=== PATIENT | male | born 2000 | race Caucasian/White ===

== ENCOUNTER → 2022-03-16 13:13 | Outpatient (BNVA) | payer OTHER, SELFPAY | PROVIDERS: Visit Provider Internal Medicine | DX: S39.012A Strain of muscle, fascia and tendon of lower back, initial encounter (principal); X50.0XXA Overexertion from strenuous movement or load, initial encounter | CPT/HCPCS: 99203 ==

== ENCOUNTER → 2022-03-20 07:59 | Outpatient (BNVA) | payer OTHER, SELFPAY | PROVIDERS: Visit Provider Internal Medicine | DX: S39.012A Strain of muscle, fascia and tendon of lower back, initial encounter (principal); X50.0XXA Overexertion from strenuous movement or load, initial encounter | CPT/HCPCS: 99213 ==

== ENCOUNTER → 2023-07-11 09:29 | Outpatient (BNVA) | payer OTHER, SELFPAY | PROVIDERS: Visit Provider Physician Assistant Medical | DX: S39.011D Strain of muscle, fascia and tendon of abdomen, subsequent encounter (principal); X50.0XXD Overexertion from strenuous movement or load, subsequent encounter | CPT/HCPCS: 99203 ==

== ENCOUNTER → 2023-07-16 10:49 | Outpatient (BNVA) | payer OTHER, SELFPAY | PROVIDERS: Visit Provider Physician Assistant Medical | DX: S39.011D Strain of muscle, fascia and tendon of abdomen, subsequent encounter (principal); X50.0XXD Overexertion from strenuous movement or load, subsequent encounter | CPT/HCPCS: 99213 ==

== ENCOUNTER → 2023-07-23 10:47 | Outpatient (BNVA) | payer OTHER, SELFPAY | PROVIDERS: Visit Provider Physician Assistant Medical | DX: R10.32 Left lower quadrant pain (principal); S39.011D Strain of muscle, fascia and tendon of abdomen, subsequent encounter; W50.0XXD Accidental hit or strike by another person, subsequent encounter | CPT/HCPCS: 99213 ==

== ENCOUNTER 2023-07-27 11:45 | Outpatient (REF) | payer OTHER, SELFPAY ==
--- NOTE | ~2023-07-27 | CT_ITS ---
EXAMINATION: CT ABDOMEN AND PELVIS WITHOUT CONTRAST CLINICAL INFORMATION: Lower abdominal pain status-post groin injury. COMPARISON: None available. TECHNIQUE: Multidetector volumetric imaging was performed from the superior aspect of the liver through the pubic symphysis. Sagittal and coronal reformatted images were obtained on the technologist's workstation. This CT examination was performed using dose optimization techniques as appropriate, variously including the following: *Automated exposure control *Adjustment of mA and/or kV according to patient size (this includes techniques or standardized protocols for targeted exams where dose is matched to indication/reason for exam; i.e. extremities or head) *Use of iterative reconstruction technique DLP: 508 mGy-cm FINDINGS: LUNG BASES: The visualized lung bases are unremarkable. LIVER, GALLBLADDER, AND BILIARY TREE: The liver is normal in size, shape, and attenuation. No focal hepatic lesion or biliary ductal dilatation is present. The gallbladder is unremarkable with no evidence of radiopaque gallstones, gallbladder wall thickening, or obvious pericholecystic inflammatory changes. PANCREAS: Unremarkable. SPLEEN: Unremarkable. ADRENAL GLANDS: Unremarkable. KIDNEYS AND URETERS: The kidneys are normal in size, shape, and attenuation. At the interpolar right kidney (6:250 and 263), 2 nonobstructing 1 mm calculi are seen. At the lower pole of the right kidney (6:272), a 3 mm nonobstructing calculus is seen. At the interpolar left kidney (6:221 and 243), 3 mm and 1 mm nonobstructing calculi are seen. No perinephric stranding. BLADDER: Unremarkable. GASTROINTESTINAL TRACT: There is wall thickening of several small bowel loops in the left upper quadrant (i.e., 3:31-9). No obstruction, free intraperitoneal air or abscess is seen. No diverticulosis or diverticulitis is seen. The vermiform appendix appears normal. ABDOMINAL WALL: There is a tiny fat-containing umbilical hernia. LYMPH NODES: There are shotty, nonpathologically enlarged pericecal lymph nodes. No sizable lymphadenopathy is seen. VASCULAR: No abdominal aortic aneurysm is seen. There is a duplicated inferior vena cava. PELVIC VISCERA: The prostate and seminal vesicles are unremarkable. OSSEOUS STRUCTURES: Unremarkable. CT/CT abdomen pelvis wo IV con IMPRESSION: 1. There is wall thickening of numerous of small bowel loops, with differential possibilities including but not limited to: Enteritis, inflammatory bowel disease, coagulopathy and, less likely, ischemia or neoplasm. Please correlate clinically. This could be more fully evaluated with a small bowel series, if clinically indicated. 2. There are nonobstructing bilateral renal calculi. No hydronephrosis is seen bilaterally. 3. There is a tiny fat-containing umbilical hernia. 4. Osseous structures are unremarkable. Fleischner guidelines were followed.
[2023-07-27] MEDS: Barium Sulfate Oral (Berry) 450 ML ORAL.SUSP 900 ML PO (14:17)
== END 2023-07-27 11:46 | disposition home or self-care (01) ==
LOC: HO.CT 11:45
PROVIDERS: Visit Provider Physician Assistant Medical
DX: R10.30 Lower abdominal pain, unspecified (principal)
CPT/HCPCS: 74176

== ENCOUNTER → 2023-07-31 09:58 | Outpatient (BNVA) | payer OTHER, SELFPAY | PROVIDERS: Visit Provider Physician Assistant Medical | DX: R10.32 Left lower quadrant pain (principal) | CPT/HCPCS: 99213 ==

== ENCOUNTER → 2023-08-20 09:31 | Outpatient (BNVA) | payer OTHER, SELFPAY | PROVIDERS: Visit Provider Physician Assistant Medical | DX: S39.011D Strain of muscle, fascia and tendon of abdomen, subsequent encounter (principal); X50.0XXD Overexertion from strenuous movement or load, subsequent encounter | CPT/HCPCS: 99213 ==

== ENCOUNTER 2023-08-21 13:13 | Outpatient (AMB) | payer OTHER, SELFPAY ==
--- NOTE | 2023-08-21 13:14 | A.OFFVIS_ITS ---
Vital Signs 08/21/23 13:18 Height 5 ft 11 in Weight 180 lb BMI 25.1 Intake Visit Reasons: umbilical hernia Intake Note: This patient presents for an assessment for an umbilical hernia. Patient c/o; reports had pain x2 weeks ago, reports no bulge. Accompanied by: Self / Same As Patient Allergies No Known Allergies Allergy (Verified 08/21/23 13:18) HPI Comments Details: Patient presents because of symptomatic umbilical hernia. He does heavy lifting at his place of employment and approximately 2 months ago and noticed pain and some swelling of his belly button area. He also had left scrotal discomfort. He was worked up for this , including CT scan of abdomen and pelvis , which demonstrated small incarcerated umbilical hernia along with a collection of other incidental finding. Patient otherwise is able to tolerate a diet, has regular bowel habits. No other significant past medical surgical history. Left scrotal pain has markedly improved Chart was reviewed and patient evaluated [facility] Surgical History (Updated 08/21/23 @ 13:36 by Augustin Wasserman MD) History of testicular surgery Family History (Updated 08/21/23 @ 13:21 by CHELSEA Izaguirre) Other Family history unknown Social History (Updated 08/21/23 @ 13:21 by CHELSEA Izaguirre) Unable to assess alcohol history related to: Unknown Patient Tobacco Use Status: Tobacco use Unknown Physical Exam Vital Signs: BMI result Body Mass Index 25.1 Const Other: Well-developed male very taciturn Chest Other: Chest breath sounds bilaterally, HS 1 in 2 GI Other: Patient was examined both supine and standing with Valsalva. Bilateral groin exam negative. Right groin scar from pediatric undescended testicle surgery. Genitalia grossly within normal limits. Abdomen is soft, benign. A approximally 2 cm irreducible umbilical hernia Assessment & Plan Assessment & Plan (1) Incarcerated umbilical hernia: Code(s): K42.0 - Umbilical hernia with obstruction, without gangrene Category: Surgical Plan I discussed with the patient therapeutic options would include observation or repair. Because of the symptomatic nature, he wished to have his hernia repaired. Risks, benefits, alternatives open inguinal hernia repair with possible mesh reviewed with the patient and included but not limited to bleeding, infection, recurrence, numbness, pain, scarring and the patient wished to proceed. All questions answered. Arrangements were made for this. Coding Level of Care Code New Pt Level 5 (87410) Diagnoses Incarcerated umbilical hernia K42.0
[2023-08-21 13:18] VITALS: BMI 25.1
== END 2023-08-21 13:38 | disposition home or self-care (01) ==
PROVIDERS: Referring Provider Physician Assistant Medical; Visit Provider Surgery
DX: K42.0 Umbilical hernia with obstruction, without gangrene (principal)
CPT/HCPCS: 99204

== ENCOUNTER → 2023-08-21 13:13 | Outpatient (BNVA) | payer OTHER, SELFPAY | PROVIDERS: Referring Provider Physician Assistant Medical; Visit Provider Surgery | DX: K42.0 Umbilical hernia with obstruction, without gangrene (principal) | CPT/HCPCS: 99202 ==

== ENCOUNTER 2023-09-28 07:07 | Day surgery (SDC) | payer OTHER, SELFPAY ==
[2023-09-26 11:16] VITALS: BMI 25.1
--- NOTE | 2023-09-26 14:05 | HO.ANESPROP2 ---
Documented by User: Erica Austin NP 09/26/23 14:05 HPI - Anesthesia Eval Consult details Narrative: 23yo M for Hernial Umbilical Irreducible with mesh PMFSH Active Problems Active Problems: All Active Problems Incarcerated umbilical hernia (Acute) Past Medical History Medical History No pertinent past medical history Family History Family History Other Family history unknown Surgical History Surgical History History of testicular surgery Social History Social History Unable to assess alcohol history related to: Unknown Patient Tobacco Use Status: Never used Tobacco Use of substances other than those prescribed or required for medical reasons: No Are you DNR?: No Advance Directives: No Advance Directives Information Provided: Yes Meds Allergies Allergy/AdvReac Type Severity Reaction Status Date / Time No Known Allergies Allergy Verified 08/21/23 13:18 Exam Height,Weight and Vital Signs: Height 5 ft 11 in Weight 81.647 kg Assessment and Plan Assessment Anesthesia Assessment: Chart Reviewed Documented by User: Yesenia Guerrero MD 09/28/23 09:00 PMFSH Past Medical History Medical History No pertinent past medical history Family History Family History Other Family history unknown Surgical History Surgical History History of testicular surgery History of Problems with Anesthesia: No Social History Social History Unable to assess alcohol history related to: Unknown Patient Tobacco Use Status: Never used Tobacco Use of substances other than those prescribed or required for medical reasons: No Are you DNR?: No Advance Directives: No Advance Directives Information Provided: Yes Meds Allergies Allergy/AdvReac Type Severity Reaction Status Date / Time No Known Allergies Allergy Verified 08/21/23 13:18 Exam Airway Mallampati Class: II TM Dist: >3cm Neck ROM: Full Loose/Missing/Broken Teeth: No Heart: RRR Lungs: CTA Assessment and Plan Assessment Anesthesia Assessment: Anesthesia Plan Discussed Final Anesthetic Review History of Problems with Anesthesia: No NPO: Yes ASA Class: I Final Preanesthetic Review: Meds/Allgs Chart Reviewed, Consent Obtained/Reviewed and Anes Risks/Benef Reviewed Patient Risk: Low Procedure Risk: Low Anesthetic Plan Anesthetic Plan: GA Disposition: Standard PACU
--- NOTE | 2023-09-27 11:29 | MHC.SHP ---
Pre-Procedural Eval Section A - 24 Hr Update-Section A only Date of Service: 09/28/23 The patient is an INPATIENT: No Changes since office visit: No Cold of Flu in the past 2 weeks, No New Medical Problems, No Changes in Medication and No Patient answered all questions Section B - Complete if H&P > 30 days Chief Complaint: Umbilical hernia with obstruction, without gangren Allergies: Allergies Allergy/AdvReac Type Severity Reaction Status Date / Time No Known Allergies Allergy Verified 08/21/23 13:18 Plan I have reviewed the history and physical and performed a pertinent physical examination on my patient. No changes have occurred unless specified. Time Spent With Patient Time: Total time managing care of this patient today ____ minutes.
[2023-09-28] VITALS (8 sets, daily range): BP systolic 114–136; BP diastolic 58–89; PULSE 63–87; RESP 16–18; TEMP 36.8–37.3; O2SAT 96–100; BMI 28.0
[2023-09-28] MEDS: Lactated Ringers 1,000 ML 100 ML IVCONT (08:13)
--- NOTE | 2023-09-28 09:50 | P.OP_ITS ---
Operative Note Operative Note Date of Service: 09/28/23 Narrative: Preoperative diagnosis: [] Incarcerated umbilical hernia Postop diagnosis: [] The same Procedure [] open repair of incarcerated umbilical hernia with Bard mesh Surgeon: [] Lux Tray Setter: [] Bonifacio Type of Anesthesia: [] General Indication for surgery: [] Roughly 2 cm incarcerated umbilical hernia with omental contents Findings: [] Patient brought to the operating room, placed on operative table supine position, after an adequate level of general anesthesia was induced, the patient's abdomen was prepped and draped in usual sterile fashion using an infraumbilical curvilinear incision, this carried down through skin, subcutaneous tissue, where hernia sac was identified and from the posterior aspect of the umbilicus. Sac was opened and redundant sac amputated. Incarcerated omental contents were reduced. Fascia margins were circumferentially cleared and a Bard mesh placed in this defect. Superficial layer of the mesh was circumferentially sutured to the surrounding fascia using interrupted 0 Ethibond suture. At completion of procedure, mesh was in good position with no gaps or tension. Wound was irrigated, secured hemostasis, and closed in the following manner; posterior aspect of the umbilicus was tacked to the wound floor using interrupted 3-0 Vicryl sutures. Skin was closed using interrupted inverted dermal 3-0 Vicryl sutures followed by Steri-Strips and sterile dressings. Wound was infiltrated 0.5% Marcaine at completion. Sponge, needle, and instrument counts were reported correct. Patient tolerated the procedure well and emerged from anesthesia stable condition. EBL minimal
[2023-09-28] MEDS: oxyCODONE HCl Immed Release 5 MG TABLET PO (10:33)
== END 2023-09-28 11:27 | disposition home or self-care (01) ==
PROVIDERS: Visit Provider Surgery
PROC: (CPT 49592; principal; 2023-09-28 09:10)
DX: K42.0 Umbilical hernia with obstruction, without gangrene (principal); Z98.890 Other specified postprocedural states
CPT/HCPCS: 49592; C1781; J0690; J1100; J1885; J2250; J2405; J2704; J2795; J3010

== ENCOUNTER → 2023-09-28 07:07 | Outpatient (BNV) | payer OTHER, SELFPAY | PROVIDERS: Visit Provider Surgery | DX: K42.0 Umbilical hernia with obstruction, without gangrene (principal) | CPT/HCPCS: 49592 ==

== ENCOUNTER 2023-10-09 09:53 | Outpatient (AMB) | payer OTHER, SELFPAY ==
--- NOTE | 2023-10-09 09:56 | MHC.OFFVIS ---
Intake Visit Reasons: S/P umbilical hernia w/mesh Intake Note: Patient here s/p incarcerated umbilical hernia w/Bard mesh. Reports incisions healing well. Patient c/o: no concerns. Never took rx pain meds. Took tylenol as needed. SX: 09-28-2023. [employer] Supervisor Required: No Accompanied by: Self / Same As Patient Allergies No Known Allergies Allergy (Verified 10/09/23 09:56) HPI Comments Details: Patient presents for follow-up. He has no wound issues or complaints. He is increasing his activity level. He is tolerating a diet. Having regular bowel habits [facility] Medical History No pertinent past medical history Surgical History Incarcerated umbilical hernia (09/28/23) History of testicular surgery Family History Other Family history unknown Social History Unable to assess alcohol history related to: Unknown Patient Tobacco Use Status: Never used Tobacco Physical Exam GI Other: Abdomen is soft. Incision clean dry and intact healing very well Assessment & Plan Assessment & Plan (1) Status post umbilical hernia repair, follow-up exam: Code(s): Z09 - Encounter for follow-up examination after completed treatment for conditions other than malignant neoplasm Category: Medical Plan Patient was given local instructions, unknown for 2 weeks off more from work and then 3 weeks light duty when he recommences. All questions answered. Patient will otherwise follow-up p.r.n. Coding Level of Care Code Global (17154) Diagnoses Status post umbilical hernia repair, follow-up exam Z09
== END 2023-10-09 10:08 | disposition home or self-care (01) ==
PROVIDERS: Visit Provider Surgery
DX: K42.0 Umbilical hernia with obstruction, without gangrene (principal); Z09 Encounter for follow-up examination after completed treatment for conditions other than malignant neoplasm
CPT/HCPCS: 99212

== ENCOUNTER → 2023-10-09 09:53 | Outpatient (BNVA) | payer OTHER, SELFPAY | PROVIDERS: Visit Provider Surgery | DX: Z09 Encounter for follow-up examination after completed treatment for conditions other than malignant neoplasm (principal); Z87.19 Personal history of other diseases of the digestive system | CPT/HCPCS: 99212 ==

== ENCOUNTER 2023-11-14 07:46 | Outpatient (AMB) | payer OTHER, SELFPAY ==
[2023-11-14 07:53] VITALS: BP 142/81; PULSE 71; BMI 27.3
--- NOTE | 2023-11-14 07:53 | A.OFFVIS_ITS ---
Vital Signs 11/14/23 07:53 Height 5 ft 11 in Weight 196 lb BMI 27.3 BP 142/81 H Blood Pressure Location Lt brachial Position Sitting Pulse 71 Intake Visit Reasons: ? incisional pain, Hx umbilical hernia repair Intake Note: Patient follow up for incision pain / umbilical hernia Patient is been having discomfort and some pain on and off on his hernia repair incision Allergies No Known Allergies Allergy (Verified 11/14/23 07:53) HPI Comments Details: Patient is well known to me from recent surgery. Patient presents because of lower abdominal wall discomfort. He has had this proximally 3 weeks time. He does a moderate to significant strenuous activities and was placed on employment. He is currently on light duty. He was seen by his medical doctor who recommended nonsteroidal anti-inflammatory drugs. Patient was status post umbilical hernia repair. He has no issues with this. He is otherwise tolerating a diet, having regular bowel habits. [facility] Medical History No pertinent past medical history Surgical History Incarcerated umbilical hernia (09/28/23) History of testicular surgery Family History Other Family history unknown Social History Unable to assess alcohol history related to: Unknown Patient Tobacco Use Status: Never used Tobacco Physical Exam Vital Signs: Last Vital Signs Pulse 71 11/14/23 07:53 BP 142/81 H 11/14/23 07:53 BMI result Body Mass Index 27.3 GI Other: Patient was examined both supine and standing with Valsalva. Umbilical hernia repair well healed. Abdomen is soft and benign. Bilateral groin exam within normal limits. Assessment & Plan Assessment & Plan (1) Abdominal wall pain: Code(s): R10.9 - Unspecified abdominal pain Category: Surgical Plan At present, no groin hernias demonstrated. This was corroborated from a CT scan earlier this year which also demonstrated no groin hernias. At present, I recommended patient undergo light duty at his place of employment as well as nonsteroidal anti-inflammatory drugs and ice or heat to the area of discomfort. Patient understands. All questions answered. He will otherwise follow-up with me geni.r.n.. Coding Level of Care Code Est Pt Level 4 (32252) Diagnoses Abdominal wall pain R10.9
== END 2023-11-14 08:08 | disposition home or self-care (01) ==
PROVIDERS: Visit Provider Surgery
DX: R10.9 Unspecified abdominal pain (principal)
CPT/HCPCS: 99214

== ENCOUNTER → 2023-11-14 07:46 | Outpatient (BNVA) | payer OTHER, SELFPAY | PROVIDERS: Visit Provider Surgery | DX: R10.9 Unspecified abdominal pain (principal) | CPT/HCPCS: 99212 ==